=== PATIENT | male | born 1930 | race Caucasian/White ===

== ENCOUNTER 2018-06-13 13:48 | Emergency (ER) | payer MEDICARE ==
[~2018-06-13] VITALS: Ht 177.8 cm; Wt 70.8 kg
--- NOTE | ~2018-06-13 | EKG ---
[place], [place] ELECTROCARDIOGRAM REPORT NAME: DENVER HUDDLESTON UNIT #: [id number] ROOM: DOCTOR: EPIPHANY DRAFT REPORT BIRTHDATE: [birth year] [facility] Test Date: 2018-06-13 Test Time: 14:35:45 Pat Name: DENVER HUDDLESTON Department: Room: Gender: Brass Polisher: DYLON : 1930 Requested By: BETHANY JUNIOR PA-C Order Number: [id number] Reading MD: Jody Solorio Measurements Intervals [place] Rate: 61 P: 51 VT: 148 QRS: -44 QRSD: 148 T: 67 QT: 471 QTc: 475 Interpretive Statements Sinus rhythm Probable left atrial enlargement Left bundle branch block Electronically Signed On 06-19-2018 11:55:37 PST by Jody Solorio CM:EKGRPT:ELECTROCARDIOGRAM REPORT [id number] BETHANY JUNIOR PA-C EPIPHANY DRAFT REPORT BETHANY JUNIOR PA-C
[~2018-06-13 13:48] MED LIST: 'CLONIDINE0.1 MG PO; Coumadin5 MG PO; METRONIDAZOLE 1%
[2018-06-13 14:49] LABS: BASO % 0.3 % (0.0-1.0); EOS # 0.1 10*3/uL (0.0-0.4); EOS % 1.5 % (1.0-4.0); LYMPH # 1.1 10*3/uL (1.3-4.4); LYMPH % 15.4 % (27.0-41.0); MEAN CELL VOLUME 95.2 fl (80.0-94.0); MEAN CORPUSCULAR HGB 31.7 pg (27.0-31.0); MEAN CORPUSCULAR HGB CONC 33.3 g/dl (33.0-37.0); MEAN PLATELET VOLUME 8.2 fl (9.6-12.3); MONO # 0.7 10*3/uL (0.1-1.0); MONO % 8.8 % (3.0-9.0); NEUT # 5.5 10*3/uL (2.3-7.9); NEUT % 73.7 % (47.0-73.0); PLATELET COUNT AUTOMATED 211 10*3/uL (130-400); RED BLOOD COUNT 4.41 10*6/uL (4.50-5.90); WHITE BLOOD COUNT 7.4 10*3/uL (4.8-10.8)
[2018-06-13 14:56] LABS: INTERNATIONAL NORM RATIO 0.9 (2.0-3.5)
[2018-06-13 15:06] LABS: ALBUMIN 3.6 gm/dl (3.1-4.5); ALKALINE PHOSPHATASE 75 U/L (45-117); BUN 29 mg/dl (7-24); CHLORIDE 107 mmol/L (98-107); CREATININE 1.76 mg/dL (0.70-1.30); POTASSIUM 4.4 mmol/L (3.5-5.1); SGOT/AST 22 IU/L (3-35); SGPT/ALT 20 U/L (12-78); SODIUM 141 mmol/L (136-145); TOTAL PROTEIN 7.5 gm/dL (6.4-8.2)
[2018-06-13 15:08] LABS: TROPONIN I < 0.015 ng/ml (<0.045)
[2018-06-13] MEDS ORDERED: MECLIZINE HCL25 M2 PO (17:36)
[2018-11-13] MEDS ORDERED: ASPIRIN ADULT L81 M1 PO (08:27)
[2018-11-13] MEDS ORDERED: BUSPAR5 MG PO (08:27)
[2018-11-13] MEDS ORDERED: NORVASC5 MG PO (08:28)
[2018-11-17] MEDS ORDERED: NORCO 5-325 TA1 EACH PO (15:13)
[2018-11-17] MEDS ORDERED: COLACE100 MG PO (15:17)
== END 2018-06-13 17:45 | disposition home or self-care (01) ==
LOC: ED 13:48
PROVIDERS: Physician Assistant
DX: I10 Essential (primary) hypertension (principal); R42 Dizziness and giddiness; Z88.2 Allergy status to sulfonamides; Z88.1 Allergy status to other antibiotic agents; Z88.8 Allergy status to other drugs, medicaments and biological substances; Z79.01 Long term (current) use of anticoagulants; Z79.899 Other long term (current) drug therapy; Z90.49 Acquired absence of other specified parts of digestive tract; Z87.891 Personal history of nicotine dependence

== ENCOUNTER 2018-09-22 18:33 | Emergency (ER) | payer MEDICARE ==
[~2018-09-22] VITALS: Ht 177.8 cm; Wt 68.0 kg
[~2018-09-22 18:33] MED LIST changes: +MECLIZINE HCL25 M2 PO
[2018-09-22 19:29] LABS: BASO % 0.3 % (0.0-1.0); EOS # 0.1 10*3/uL (0.0-0.4); EOS % 0.8 % (1.0-4.0); HEMATOCRIT 41.9 % (42.0-52.0); HEMOGLOBIN 13.9 g/dl (14.0-18.0); LYMPH # 1.4 10*3/uL (1.3-4.4); LYMPH % 15.3 % (27.0-41.0); MEAN CELL VOLUME 95.2 fl (80.0-94.0); MEAN CORPUSCULAR HGB 31.6 pg (27.0-31.0); MEAN CORPUSCULAR HGB CONC 33.2 g/dl (33.0-37.0); MEAN PLATELET VOLUME 8.2 fl (9.6-12.3); MONO # 0.9 10*3/uL (0.1-1.0); MONO % 10.4 % (3.0-9.0); NEUT # 6.5 10*3/uL (2.3-7.9); NEUT % 72.7 % (47.0-73.0); PLATELET COUNT AUTOMATED 221 10*3/uL (130-400); RED CELL DISTRI WIDTH 13.4 % (0-14.5); WHITE BLOOD COUNT 8.9 10*3/uL (4.8-10.8)
[2018-09-22 19:30] LABS: BILIRUBIN NEGATIVE (NEGATIVE); BLOOD TRACE-LYSED (NEGATIVE); CLARITY CLEAR (CLEAR); COLOR YELLOW (YELLOW); GLUCOSE NEGATIVE (NEGATIVE); KETONE NEGATIVE (NEGATIVE); LEUKO ESTERASE NEGATIVE (NEGATIVE); NITRITE NEGATIVE (NEGATIVE); PH 6.5 (5.0-9.0); SPECIFIC GRAVITY <= 1.005 (1.005-1.030); UROBILINOGEN 0.2 E.U./dl (0.2-1.0)
[2018-09-22 19:40] LABS: BACTERIA TRACE; EPITHELIAL CELLS 0-2
[2018-09-22 19:40] LABS: ACT PARTIAL THROMBO TIME 24.3 SECONDS (20.0-32.1); INTERNATIONAL NORM RATIO 0.9 (2.0-3.5)
[2018-09-22 19:45] LABS: CREATININE 1.94 mg/dL (0.70-1.30); POTASSIUM 3.8 mmol/L (3.5-5.1); THYROXINE (T4) TOTAL 9.2 ug/dl (4.5-12.1); TOTAL PROTEIN 7.6 gm/dL (6.4-8.2)
[2018-09-22 19:53] LABS: THYROID STIM HORMONE (HS) 4.14 uIU/ml (0.358-4.75)
[2018-11-13] MEDS ORDERED: ASPIRIN ADULT L81 M1 PO (08:27)
[2018-11-13] MEDS ORDERED: BUSPAR5 MG PO (08:27)
[2018-11-13] MEDS ORDERED: NORVASC5 MG PO (08:28)
[2018-11-17] MEDS ORDERED: NORCO 5-325 TA1 EACH PO (15:13)
[2018-11-17] MEDS ORDERED: COLACE100 MG PO (15:17)
== END 2018-09-22 21:22 | disposition home or self-care (01) ==
LOC: ED 18:33
PROVIDERS: Nurse Practitioner Family
DX: F91.9 Conduct disorder, unspecified (principal); R51 Headache; I12.9 Hypertensive chronic kidney disease with stage 1 through stage 4 chronic kidney disease, or unspecified chronic kidney disease; N18.3 Chronic kidney disease, stage 3 (moderate); E78.1 Pure hyperglyceridemia; Z88.2 Allergy status to sulfonamides; Z88.1 Allergy status to other antibiotic agents; Z88.8 Allergy status to other drugs, medicaments and biological substances; Z79.01 Long term (current) use of anticoagulants; Z79.899 Other long term (current) drug therapy; Z86.73 Personal history of transient ischemic attack (TIA), and cerebral infarction without residual deficits; Z90.49 Acquired absence of other specified parts of digestive tract; Z87.891 Personal history of nicotine dependence

== ENCOUNTER → 2018-11-17 | Day surgery (SDC) | payer MEDICARE ==
[~2018-11-17] VITALS: Ht 175.2 cm; Wt 65.8 kg
[2018-11-17] VITALS (7 sets, daily range): BP systolic 115–130; BP diastolic 55–97
[~2018-11-17] MED LIST changes: +ASPIRIN ADULT L81 M1 PO; +BUSPAR5 MG PO; +COLACE100 MG PO; +NORCO 5-325 TA1 EACH PO; +NORVASC5 MG PO
== END | disposition home or self-care (01) ==
LOC: SDC 11-13 08:00
DX: K40.91 Unilateral inguinal hernia, without obstruction or gangrene, recurrent (principal); I10 Essential (primary) hypertension; F32.9 Major depressive disorder, single episode, unspecified; F41.9 Anxiety disorder, unspecified; Z98.890 Other specified postprocedural states; Z79.84 Long term (current) use of oral hypoglycemic drugs; Z79.899 Other long term (current) drug therapy; Z88.0 Allergy status to penicillin; Z88.2 Allergy status to sulfonamides; Z88.8 Allergy status to other drugs, medicaments and biological substances; Z86.718 Personal history of other venous thrombosis and embolism; Z80.42 Family history of malignant neoplasm of prostate; Z80.8 Family history of malignant neoplasm of other organs or systems; Z85.828 Personal history of other malignant neoplasm of skin; Z90.49 Acquired absence of other specified parts of digestive tract

== ENCOUNTER → 2018-12-18 | Outpatient (CLI) | payer MEDICARE | END | disposition home or self-care (01) | LOC: US 14:11 | DX: R10.31 Right lower quadrant pain (principal) ==

== ENCOUNTER → 2019-04-05 | Outpatient (CLI) | payer MEDICARE ==
[2019-04-05 09:03] LABS: BILIRUBIN NEGATIVE (NEGATIVE); BLOOD TRACE-INTACT (NEGATIVE); CLARITY CLEAR (CLEAR); COLOR YELLOW (YELLOW); GLUCOSE NEGATIVE (NEGATIVE); KETONE NEGATIVE (NEGATIVE); LEUKO ESTERASE NEGATIVE (NEGATIVE); NITRITE NEGATIVE (NEGATIVE); SPECIFIC GRAVITY 1.025 (1.005-1.030); UROBILINOGEN 0.2 E.U./dl (0.2-1.0)
[2019-04-05 09:06] LABS: BASO % 0.5 % (0.0-1.0); EOS # 0.2 10*3/uL (0.0-0.4); EOS % 2.8 % (1.0-4.0); HEMATOCRIT 41.2 % (42.0-52.0); HEMOGLOBIN 13.6 g/dl (14.0-18.0); LYMPH # 1.5 10*3/uL (1.3-4.4); LYMPH % 19.3 % (27.0-41.0); MEAN CELL VOLUME 94.5 fl (80.0-94.0); MEAN CORPUSCULAR HGB 31.2 pg (27.0-31.0); MEAN PLATELET VOLUME 8.9 fl (9.6-12.3); MONO # 0.8 10*3/uL (0.1-1.0); MONO % 9.5 % (3.0-9.0); NEUT # 5.4 10*3/uL (2.3-7.9); NEUT % 67.6 % (47.0-73.0); PLATELET COUNT AUTOMATED 255 10*3/uL (130-400); RED BLOOD COUNT 4.36 10*6/uL (4.50-5.90); RED CELL DISTRI WIDTH 13.3 % (0-14.5)
[2019-04-05 09:15] LABS: POTASSIUM 4.2 mmol/L (3.5-5.1)
[2019-04-05 09:19] LABS: ALBUMIN 3.7 gm/dl (3.1-4.5); CREATININE 1.8 mg/dL (0.70-1.30); PHOSPHOROUS 2.9 mg/dL (2.5-4.9)
[2019-04-05 09:32] LABS: FERRITIN 51.6 ng/mL (22.0-322.0); VITAMIN D, 25-HYDROXY 28.6 ng/mL (30-100)
[2019-04-05 09:33] LABS: PTH INTACT 60.4 pg/mL (18.5-88.0)
[2019-04-05 09:41] LABS: BACTERIA 2+; EPITHELIAL CELLS 0-2; MUCOUS 1+; WBC 0-2 wbc/hpf (0-5)
== END | disposition home or self-care (01) ==
LOC: LAB 07:55
PROVIDERS: Internal Medicine Nephrology
DX: N25.81 Secondary hyperparathyroidism of renal origin (principal); N18.3 Chronic kidney disease, stage 3 (moderate); D63.1 Anemia in chronic kidney disease

== ENCOUNTER → 2019-04-09 | Outpatient (CLI) | payer MEDICARE | END | disposition home or self-care (01) | LOC: US 13:11 | DX: M79.89 Other specified soft tissue disorders (principal); M79.605 Pain in left leg; Z86.718 Personal history of other venous thrombosis and embolism ==

== ENCOUNTER 2019-05-14 11:25 | Emergency (ER) | payer MEDICARE ==
[~2019-05-14] VITALS: Ht 175.2 cm; Wt 72.6 kg
== END 2019-05-14 14:06 | disposition home or self-care (01) ==
LOC: ED 11:25
DX: S51.811A Laceration without foreign body of right forearm, initial encounter (principal); S51.011A Laceration without foreign body of right elbow, initial encounter; I12.9 Hypertensive chronic kidney disease with stage 1 through stage 4 chronic kidney disease, or unspecified chronic kidney disease; N18.3 Chronic kidney disease, stage 3 (moderate); Z79.82 Long term (current) use of aspirin; Z79.899 Other long term (current) drug therapy; Z88.1 Allergy status to other antibiotic agents; Z88.2 Allergy status to sulfonamides; Z88.8 Allergy status to other drugs, medicaments and biological substances; Z87.891 Personal history of nicotine dependence; Z86.73 Personal history of transient ischemic attack (TIA), and cerebral infarction without residual deficits; W01.0XXA Fall on same level from slipping, tripping and stumbling without subsequent striking against object, initial encounter; Y93.89 Activity, other specified; Y92.89 Other specified places as the place of occurrence of the external cause; Y99.8 Other external cause status

== ENCOUNTER → 2019-06-23 | Outpatient (CLI) | payer MEDICARE | END | disposition home or self-care (01) | LOC: RAD 09:42 | DX: M17.11 Unilateral primary osteoarthritis, right knee (principal) ==

== ENCOUNTER → 2019-07-07 | Outpatient (CLI) | payer MEDICARE ==
[2019-07-07 08:07] LABS: BASO % 0.6 % (0.0-1.0); EOS # 0.3 10*3/uL (0.0-0.4); EOS % 4.1 % (1.0-4.0); HEMATOCRIT 39.7 % (42.0-52.0); HEMOGLOBIN 13.2 g/dl (14.0-18.0); LYMPH # 1.5 10*3/uL (1.3-4.4); LYMPH % 21.1 % (27.0-41.0); MEAN CELL VOLUME 94.1 fl (80.0-94.0); MEAN CORPUSCULAR HGB 31.3 pg (27.0-31.0); MEAN CORPUSCULAR HGB CONC 33.2 g/dl (33.0-37.0); MEAN PLATELET VOLUME 8.4 fl (9.6-12.3); MONO # 0.8 10*3/uL (0.1-1.0); MONO % 10.8 % (3.0-9.0); NEUT # 4.5 10*3/uL (2.3-7.9); NEUT % 63.3 % (47.0-73.0); PLATELET COUNT AUTOMATED 238 10*3/uL (130-400); RED BLOOD COUNT 4.22 10*6/uL (4.50-5.90); RED CELL DISTRI WIDTH 13.2 % (0-14.5)
[2019-07-07 08:46] LABS: ALBUMIN 3.7 gm/dl (3.1-4.5); CREATININE 1.84 mg/dL (0.70-1.30); TOTAL PROTEIN 7.3 gm/dL (6.4-8.2)
== END | disposition home or self-care (01) ==
LOC: LAB 07:38
PROVIDERS: Family Medicine
DX: I10 Essential (primary) hypertension (principal); E55.9 Vitamin D deficiency, unspecified; Z79.899 Other long term (current) drug therapy

== ENCOUNTER 2020-01-03 07:56 | Observation (INO) | payer MEDICARE ==
[~2020-01-03] VITALS: Ht 175.3 cm; Wt 62.3 kg
[2020-01-03 08:00] VITALS: BP 140/66
[2020-01-03] MEDS ORDERED: LISINOPRIL5 MG PO (08:12)
[2020-01-03 09:07] LABS: BASO % 0.3 % (0.0-1.0); EOS # 0.1 10*3/uL (0.0-0.4); EOS % 0.9 % (1.0-4.0); HEMATOCRIT 42.9 % (42.0-52.0); LYMPH # 1.4 10*3/uL (1.3-4.4); MEAN CELL VOLUME 92.9 fl (80.0-94.0); MEAN CORPUSCULAR HGB 30.1 pg (27.0-31.0); MEAN CORPUSCULAR HGB CONC 32.4 g/dl (33.0-37.0); MEAN PLATELET VOLUME 8.4 fl (9.6-12.3); MONO % 9.9 % (3.0-9.0); NEUT # 7.2 10*3/uL (2.3-7.9); NEUT % 74.6 % (47.0-73.0); PLATELET COUNT AUTOMATED 265 10*3/uL (130-400); RED BLOOD COUNT 4.62 10*6/uL (4.50-5.90); WHITE BLOOD COUNT 9.6 10*3/uL (4.8-10.8)
[2020-01-03 09:18] LABS: ALBUMIN 4.1 gm/dl (3.1-4.5); CREATININE 2.06 mg/dL (0.70-1.30); POTASSIUM 3.8 mmol/L (3.5-5.1); TOTAL PROTEIN 8.2 gm/dL (6.4-8.2)
[2020-01-03 09:22] LABS: BILIRUBIN NEGATIVE; BLOOD NEGATIVE (NEGATIVE); CLARITY CLEAR (CLEAR); COLOR YELLOW (YELLOW); EPITHELIAL CELLS 0-2; GLUCOSE NEGATIVE; KETONE NEGATIVE; LEUKO ESTERASE NEGATIVE (NEGATIVE); NITRITE NEGATIVE (NEGATIVE); UROBILINOGEN 0.2 E.U./dl (0.0-1.0)
[2020-01-03 09:26] LABS: INTERNATIONAL NORM RATIO 0.9 (2.0-3.5)
--- NOTE | 2020-01-03 09:59 | NUR ---
PATIENT RESTING IN BED WITH EYES CLOSED. NO S/S OF DISTRESS NOTED, CALL LIGHT WITHIN REACH, BED IN LOW, SIDE RAILS UP X2.
[2020-01-03] MEDS ORDERED: BUSPAR5 MG PO (10:36)
[2020-01-03 10:40] VITALS: BP 121/50
[2020-01-03 10:45] VITALS: BP 128/54
--- NOTE | 2020-01-03 11:02 | NUR ---
BLADDER SCANNED FOR 190 AFTER URINATING IN ED. STATES HE HAS NO KNOWN HISTORY OF PROSTATE PROBLEMS.
[2020-01-03 12:00] VITALS: BP 114/57
[2020-01-03 16:00] VITALS: BP 103/47
[2020-01-03 20:00] VITALS: BP 110/52
--- NOTE | 2020-01-03 21:00 | NUR ---
PATIENT VOICED NO COMPLAINTS AT TIME, JUST SHOWED CONCERNS FOR . PATIENT STATED THAT AFTER HE ATE IT TOOK LONGER TO HAVE A BOWEL MOVEMENT COMPARED TO IMMEDIATELY HAVING TO GO. NO OVERT DISTRESS NOTED, BED IS LOCKED IN LOWEST POSITION, CALL LIGHT WITHIN REACH
[2020-01-04] VITALS: BP 110/50
--- NOTE | 2020-01-04 05:51 | NUR ---
PATIENT MEDICATED WITH ZOFRAN FOR C/O NAUSEA. WILL MONITOR
[2020-01-04 06:09] LABS: BASO % 0.3 % (0.0-1.0); EOS # 0.2 10*3/uL (0.0-0.4); EOS % 2.3 % (1.0-4.0); HEMATOCRIT 35.9 % (42.0-52.0); LYMPH # 1.5 10*3/uL (1.3-4.4); LYMPH % 16.6 % (27.0-41.0); MEAN CELL VOLUME 92.8 fl (80.0-94.0); MEAN CORPUSCULAR HGB 30.7 pg (27.0-31.0); MEAN CORPUSCULAR HGB CONC 33.1 g/dl (33.0-37.0); MEAN PLATELET VOLUME 8.4 fl (9.6-12.3); MONO % 10.9 % (3.0-9.0); NEUT # 6.2 10*3/uL (2.3-7.9); NEUT % 68.9 % (47.0-73.0); PLATELET COUNT AUTOMATED 210 10*3/uL (130-400); RED BLOOD COUNT 3.87 10*6/uL (4.50-5.90)
[2020-01-04 06:19] LABS: ALBUMIN 3.3 gm/dl (3.1-4.5); CREATININE 1.77 mg/dL (0.70-1.30); FREE T4 1.13 ng/dl (0.76-1.46); POTASSIUM 3.8 mmol/L (3.5-5.1); TOTAL PROTEIN 6.6 gm/dL (6.4-8.2)
[2020-01-04 06:23] LABS: THYROID STIM HORMONE (HS) 4.32 uIU/ml (0.358-4.75)
[2020-01-04 07:30] LABS: VITAMIN D, 25-HYDROXY 53.4 ng/mL (30-100)
[2020-01-04 08:00] VITALS: BP 104/44
--- NOTE | 2020-01-04 09:00 | NUR ---
Delivery And Installation Subcontractor in to talk to patient. Patient states lives at home with his . There are 12 steps in the home. Physician: Dr. Khadra Naidu Pharmacy: [facility] Home health services: none Patient's level of ADLs: INDEPENDENT Patient has working utilities: yes DME: none Follow-up physician's appointment after d/c: will be made by the hospitalist nurse director upon discharge Does patient want to access PORTAL?: no Discharge plan discussed with patient. He lives at home with his . He states he son arrived last night for [place] to stay with them until they are back on their feet. He is independent in his ADLs and ambulation. Discussed home health care services and he declines. CM will continue to follow for any discharge planning needs. When medically stable he will be discharged to home. He states his son will provide transportation on discharge. OPAL PRADO
[2020-01-04] MEDS ORDERED: FLAGYL500 MG PO (13:05)
[2020-01-04] MEDS ORDERED: CIPRO250 MG PO (13:05)
--- NOTE | 2020-01-04 13:55 | NUR ---
MSDIS Discharge instructions reviewed with patient/family. Patient receptive and verbalizes understanding. Follow-up care arranged. Written instructions given to patient/family. DELIA RICE
== END 2020-01-04 14:00 | disposition home or self-care (01) ==
LOC: ED 07:56 → 5E 10:20 → EDHOLD 10:20 → 5E 10:29
PROVIDERS: Emergency Medicine; Registered Nurse; ADMIT Internal Medicine; ATTEND Internal Medicine
DX: K52.9 Noninfective gastroenteritis and colitis, unspecified (principal); I12.9 Hypertensive chronic kidney disease with stage 1 through stage 4 chronic kidney disease, or unspecified chronic kidney disease; N18.3 Chronic kidney disease, stage 3 (moderate); E86.0 Dehydration; R73.9 Hyperglycemia, unspecified

== ENCOUNTER 2020-01-08 19:08 | Emergency (ER) | payer MEDICARE ==
[~2020-01-08] VITALS: Ht 175.2 cm; Wt 65.8 kg
[~2020-01-08 19:08] MED LIST changes: +CIPRO250 MG PO; +FLAGYL500 MG PO; +LISINOPRIL5 MG PO
[2020-01-08 20:03] LABS: BASO % 0.5 % (0.0-1.0); EOS # 0.1 10*3/uL (0.0-0.4); EOS % 1.6 % (1.0-4.0); HEMATOCRIT 36.7 % (42.0-52.0); LYMPH % 12.8 % (27.0-41.0); MEAN CELL VOLUME 91.1 fl (80.0-94.0); MEAN CORPUSCULAR HGB 29.8 pg (27.0-31.0); MEAN CORPUSCULAR HGB CONC 32.7 g/dl (33.0-37.0); MEAN PLATELET VOLUME 8.1 fl (9.6-12.3); MONO # 0.8 10*3/uL (0.1-1.0); MONO % 10.6 % (3.0-9.0); NEUT # 5.9 10*3/uL (2.3-7.9); NEUT % 74.2 % (47.0-73.0); PLATELET COUNT AUTOMATED 258 10*3/uL (130-400); RED BLOOD COUNT 4.03 10*6/uL (4.50-5.90); RED CELL DISTRI WIDTH 13.1 % (0-14.5); WHITE BLOOD COUNT 7.9 10*3/uL (4.8-10.8)
[2020-01-08 20:19] LABS: ALBUMIN 3.8 gm/dl (3.1-4.5); ALKALINE PHOSPHATASE 62 U/L (45-117); BUN 30 mg/dl (7-24); CHLORIDE 106 mmol/L (98-107); CREATININE 2.07 mg/dL (0.70-1.30); LIPASE 90 U/L (73-393); SGOT/AST 43 IU/L (3-35); SGPT/ALT 33 U/L (12-78); SODIUM 138 mmol/L (136-145); TOTAL PROTEIN 7.3 gm/dL (6.4-8.2)
[2020-01-08 20:21] LABS: ACT PARTIAL THROMBO TIME 27.1 SECONDS (20.0-32.1); TROPONIN I < 0.015 ng/ml (<0.045)
[2020-01-08 21:00] LABS: CLARITY CLEAR (CLEAR); COLOR YELLOW (YELLOW)
[2020-01-08 21:01] LABS: BACTERIA TRACE; BILIRUBIN NEGATIVE; BLOOD NEGATIVE (NEGATIVE); GLUCOSE NEGATIVE; KETONE NEGATIVE; LEUKO ESTERASE TRACE (NEGATIVE); NITRITE NEGATIVE (NEGATIVE); WBC 0-2 wbc/hpf (0-5)
[2020-01-09] MEDS ORDERED: MIRALAX POWDER17 G1 PO (00:11)
== END 2020-01-09 00:50 | disposition home or self-care (01) ==
LOC: ED 19:08
PROVIDERS: Emergency Medicine Emergency Medical Services
DX: K59.00 Constipation, unspecified (principal); E86.0 Dehydration; Z88.1 Allergy status to other antibiotic agents; Z88.2 Allergy status to sulfonamides; Z88.8 Allergy status to other drugs, medicaments and biological substances; Z79.899 Other long term (current) drug therapy; Z87.891 Personal history of nicotine dependence

== ENCOUNTER 2020-02-03 14:21 | Inpatient (IN) | payer MEDICARE ==
[~2020-02-03] VITALS: Ht 175.2 cm; Wt 63.5 kg
[~2020-02-03 14:21] MED LIST changes: +MIRALAX POWDER17 G1 PO
[2020-02-03 14:30] VITALS: BP 113/53
[2020-02-03 15:03] LABS: HEMATOCRIT 36.3 % (42.0-52.0); MEAN CELL VOLUME 92.1 fl (80.0-94.0); MEAN CORPUSCULAR HGB 30.5 pg (27.0-31.0); MEAN CORPUSCULAR HGB CONC 33.1 g/dl (33.0-37.0); MEAN PLATELET VOLUME 8.6 fl (9.6-12.3); PLATELET COUNT AUTOMATED 246 10*3/uL (130-400); RED BLOOD COUNT 3.94 10*6/uL (4.50-5.90); RED CELL DISTRI WIDTH 12.9 % (0-14.5); WHITE BLOOD COUNT 25.9 10*3/uL (4.8-10.8)
[2020-02-03 15:13] LABS: ACT PARTIAL THROMBO TIME 29.3 SECONDS (20.0-32.1); INTERNATIONAL NORM RATIO 1.1 (2.0-3.5)
[2020-02-03 15:18] LABS: ALBUMIN 2.9 gm/dl (3.1-4.5); CREATININE 1.95 mg/dL (0.70-1.30); POTASSIUM 3.7 mmol/L (3.5-5.1); TOTAL PROTEIN 6.5 gm/dL (6.4-8.2); TROPONIN I 0.032 ng/ml (<0.045)
[2020-02-03 15:26] LABS: TOTAL CELLS COUNTED 100 #CELLS
[2020-02-03 15:27] LABS: BURR CELLS FEW
[2020-02-03 15:28] LABS: PLATELET SUFFICIENCY NORMAL (NORMAL)
--- NOTE | 2020-02-03 15:41 | NUR ---
PT PROMPTED FOR URINE SAMPLE. PT PROVIDED URINE CUP AND CALL LIGHT WITHIN REACH.
[2020-02-03 16:52] LABS: BILIRUBIN Negative (Negative); BLOOD Negative (Negative); CLARITY Cloudy (Clear); COLOR Dark Yellow (Yellow); GLUCOSE Negative (Negative); KETONE 1+ (Negative); LEUKO ESTERASE Negative (Negative); NITRITE Negative (Negative)
[2020-02-03 16:59] LABS: BACTERIA 4+; HYALINE CAST 0-2; RBC 0-2 rbc/hpf (0-2); WBC 0-2 wbc/hpf (0-5)
[2020-02-03 17:17] VITALS: BP 114/62
--- NOTE | 2020-02-03 17:49 | NUR ---
PT PREFERS TO STAY IN [facility]. PT PROMPTED TO WEAR GOWN.
--- NOTE | 2020-02-03 17:54 | NUR ---
PT DENIES WOUNDS.
[2020-02-03 18:10] VITALS: BP 116/52
--- NOTE | 2020-02-03 18:10 | NUR ---
A 89, admitted to 5E, under the services of FADI Villegas DO with a diagnosis of COLITIS, GENERAL WEAKNESS, SEPSIS. Chief complaint is ABDOMINAL PAIN AND DIARRHEA. Patient arrived via bed from ER. Monitor applied. Initial assessment completed. Vital signs taken and recorded. FADI VILLEGAS DO notified of admission to the unit. Orders received. See assessment for past medical history, medications and allergies. Patient and/or family oriented to unit. [facility] visitation policy reviewed. Clothing/patient valuable form completed. BETHANY GREGORY
[2020-02-03] MEDS ORDERED: PANTOPRAZOLE SO40 MG PO (18:29)
--- NOTE | 2020-02-03 19:27 | NUR ---
PT MED REC UPDATED PER PT AND MED CLAIM HISTORY. DR PATE NOTIFIED OF THIS.
[2020-02-03 20:00] VITALS: BP 128/46
--- NOTE | 2020-02-03 23:22 | NUR ---
PATIENT NAUSEOUS. MEDICATED WITH ZOFRAN AT THIS TIME. WILL CHECK EFFECTIVENESS.
[2020-02-04] VITALS: BP 136/57
--- NOTE | 2020-02-04 00:22 | NUR ---
PATIENT STATES DORIS IS HELPING.
--- NOTE | 2020-02-04 04:00 | NUR ---
PATIENT SLEEPING. NO SIGNS OF DISTRESS. RESPIRATIONS EASY, NON LABORED. IV FLUIDS INFUSING. BED IN LOWEST POSITION, CALL LIGHT WITHIN REACH, WILL CONTINUE TO MONITOR.
[2020-02-04 06:29] LABS: MEAN CELL VOLUME 94.6 fl (80.0-94.0); MEAN CORPUSCULAR HGB 30.1 pg (27.0-31.0); MEAN CORPUSCULAR HGB CONC 31.8 g/dl (33.0-37.0); MEAN PLATELET VOLUME 8.9 fl (9.6-12.3); PLATELET COUNT AUTOMATED 249 10*3/uL (130-400); RED BLOOD COUNT 3.49 10*6/uL (4.50-5.90); RED CELL DISTRI WIDTH 13.2 % (0-14.5); WHITE BLOOD COUNT 26.2 10*3/uL (4.8-10.8)
[2020-02-04 07:00] LABS: ALBUMIN 2.4 gm/dl (3.1-4.5); CREATININE 1.77 mg/dL (0.70-1.30); POTASSIUM 3.7 mmol/L (3.5-5.1)
[2020-02-04 07:01] LABS: TOTAL PROTEIN 5.7 gm/dL (6.4-8.2)
[2020-02-04 07:46] LABS: TOTAL CELLS COUNTED 100 #CELLS
[2020-02-04 07:47] LABS: BURR CELLS FEW; PLATELET SUFFICIENCY NORMAL (NORMAL)
[2020-02-04 08:00] VITALS: BP 102/58
--- NOTE | 2020-02-04 08:37 | NUR ---
PT GIVEN ZOFRAN AT THIS TIME FOR C/O NAUSEA. WILL MONITOR FOR EFFECTIVENESS. CALL LIGHT IN REACH.
--- NOTE | 2020-02-04 08:44 | NUR ---
Shift chart check completed.
--- NOTE | 2020-02-04 09:37 | NUR ---
ZOFRAN EFFECTIVE PER PT.
--- NOTE | 2020-02-04 10:57 | NUR ---
FLIGHT COMMUNICATIONS OFFICER FAXED REFERRAL TO [facility] FOR REVIEW.
--- NOTE | 2020-02-04 11:11 | NUR ---
FACE TO FACE FORM FAXED TO [facility].
--- NOTE | 2020-02-04 11:51 | NUR ---
Deputy County Counsel in to talk to patient. Patient states lives at HOME with . There are 10 steps in the home. Physician: RICHY Pharmacy: [facility] Home health services: NONE AT THIS TIME FOR HIMSELF BUT HAS THEM AND HE WOULD LIKE SAME COMPANY BUT DOES NOT KNOW WHICH ONE IT IS. Patient's level of ADLs: INDEPENDENT Patient has working utilities: YES DME: NONE Follow-up physician's appointment after d/c: WILL BE MADE BY HOSPITALIST NURSE DIRECTOR ON DISCHARGE Does patient want to access PORTAL?: NO Discharge plan PT LIVES AT HOME WITH HIS AND IS INDEPENDENT. PT STATES HIS RECENTLY HAD A HEART CATH AND HAS HOME HEALTH BUT DID NOT KNOW WHAT COMPANY. STATES HE WOULD LIKE THE SAME ONE. PER NOTES PT HAS [facility]. REFERRAL HAS BEEN SENT TO [facility] FOR PT ALSO. PT STATES HIS SON IS IN FROM [place] AND WILL BE STAYING FOR A WEEK OR MORE WITH THEM. WILL CONTINUE TO FOLLOW. PT STATES HE WILL HAVE A RIDE HOME.. GERARDO HAMPTON
[2020-02-04 12:00] VITALS: BP 113/52
--- NOTE | 2020-02-04 13:43 | NUR ---
LAB CALLS THIS NURSE WITH CRITICAL FINDING OF A POSITIVE C DIFF FOR THIS PATIENT. DR DUNBAR NOTIFIED OF THIS.
--- NOTE | 2020-02-04 14:23 | NUR ---
CONSULT CALLED TO DR TAN OFFICE.
[2020-02-04 16:35] VITALS: BP 123/47
[2020-02-04 20:00] VITALS: BP 128/49
--- NOTE | 2020-02-04 21:19 | NUR ---
PATIENT DRY HEAVING, REQUESTING SOMETHING FOR IT. MEDICATED WITH PHENERGAN AT THIS TIME. WILL CHECK EFFECTIVENESS.
--- NOTE | 2020-02-04 22:19 | NUR ---
PATIENT STATES HE IS FEELING BETTER. PHENERGAN EFFECTIVE.
[2020-02-05] VITALS: BP 118/54
--- NOTE | 2020-02-05 04:00 | NUR ---
PATIENT SLEEPING, NO SIGNS OF DISTRESS. RESPIRATIONS EASY,NON LABORED. BED IN LOWEST POSITION,CALL LIGHT WITHIN REACH. WILL CONTINUE TO MONITOR.
[2020-02-05 06:17] LABS: HEMATOCRIT 32.4 % (42.0-52.0); MEAN CELL VOLUME 93.4 fl (80.0-94.0); MEAN CORPUSCULAR HGB CONC 32.1 g/dl (33.0-37.0); MEAN PLATELET VOLUME 8.8 fl (9.6-12.3); PLATELET COUNT AUTOMATED 241 10*3/uL (130-400); RED BLOOD COUNT 3.47 10*6/uL (4.50-5.90); RED CELL DISTRI WIDTH 13.3 % (0-14.5); WHITE BLOOD COUNT 20.7 10*3/uL (4.8-10.8)
[2020-02-05 06:34] LABS: ALBUMIN 2.3 gm/dl (3.1-4.5); CREATININE 1.85 mg/dL (0.70-1.30); POTASSIUM 3.6 mmol/L (3.5-5.1); TOTAL PROTEIN 5.6 gm/dL (6.4-8.2)
[2020-02-05 07:03] LABS: BURR CELLS MODERATE; PLATELET SUFFICIENCY NORMAL (NORMAL); TOTAL CELLS COUNTED 100 #CELLS
--- NOTE | 2020-02-05 07:30 | NUR ---
TOOK OVER CARE OF PT AT THIS TIME. PT RESTING IN BED. RESPIRATIONS EASY AND UNLABORED ON ROOM AIR. NO S/S OF DISTRESS. NO COMPLAINTS VOICED BY PT. CALL LIGHT IN REACH.
[2020-02-05 08:00] VITALS: BP 118/53
[2020-02-05 12:00] VITALS: BP 120/50
[2020-02-05 16:00] VITALS: BP 111/47
[2020-02-05 20:00] VITALS: BP 112/49
[2020-02-06] VITALS: BP 126/52
[2020-02-06 06:17] LABS: HEMATOCRIT 33.3 % (42.0-52.0); MEAN CELL VOLUME 93.5 fl (80.0-94.0); MEAN CORPUSCULAR HGB 30.3 pg (27.0-31.0); MEAN CORPUSCULAR HGB CONC 32.4 g/dl (33.0-37.0); MEAN PLATELET VOLUME 8.8 fl (9.6-12.3); PLATELET COUNT AUTOMATED 265 10*3/uL (130-400); RED BLOOD COUNT 3.56 10*6/uL (4.50-5.90); RED CELL DISTRI WIDTH 13.2 % (0-14.5); WHITE BLOOD COUNT 16.3 10*3/uL (4.8-10.8)
[2020-02-06 06:30] LABS: POTASSIUM 3.2 mmol/L (3.5-5.1)
[2020-02-06 06:34] LABS: CREATININE 1.72 mg/dL (0.70-1.30)
[2020-02-06 07:22] LABS: BURR CELLS MODERATE; PLATELET SUFFICIENCY NORMAL (NORMAL); TOTAL CELLS COUNTED 100 #CELLS
[2020-02-06 08:00] VITALS: BP 117/47
[2020-02-06 12:00] VITALS: BP 112/46
[2020-02-06 16:00] VITALS: BP 127/53
--- NOTE | 2020-02-06 16:35 | NUR ---
TYLENOL GIVEN FOR ACHING BACK PAIN RATED 5/10. CALL LIGHT IN REACH. K-PAD ALSO APPLIED O BACK AT THIS TIME. WILL MONITOR.
--- NOTE | 2020-02-06 17:26 | NUR ---
PER PT, TYLENOL AND K-PAD HAVE HELPED RELIEVE EARLIER BACK PAIN COMPLAINTS. CALL LIGHT IN REACH.
[2020-02-06 20:00] VITALS: BP 116/62
--- NOTE | 2020-02-06 20:30 | NUR ---
IN TO ASSESS PATIENT. PATIENT PLEASANT AND COOPERATIVE WITH ASSESSMENT. STATES HE WOULD LIKE TO TAKE HIS ANTIBIOTIC AND HIS "DRY HEAVE MEDICATION", AT THE SAME TIME TONIGHT SO MAYBE HE WILL SLEEP THROUGH THE NIGHT. PATIENT STATES HIS BOWEL MOVEMEMNTS ARE BECOMIGN LESS, BUT WHEN HE GOES IT'S LIKE A CORK IS REMOVED AND IT JUST COMES OUT. BOWELS HYPERACTIVE X4 QUADS. STATES HE HAS TENDERNESS AND NAUSEA AT TIMES. CALL LIGHT WITHIN REACH, WILL MONITOR
--- NOTE | 2020-02-06 23:00 | NUR ---
PATIENT SLEEPING, AWAKENS EASILY FOR NIGHTTIME MEDS. NO COMPLAINTS AT THIS TIME. CALL LIGHT WITHIN REACH, WILL MONITOR
[2020-02-07] VITALS: BP 139/63
--- NOTE | 2020-02-07 01:21 | NUR ---
24 HR chart check completed.
--- NOTE | 2020-02-07 02:53 | NUR ---
PATIENT SLEEPING, NO DISTRESS NOTED. BREATHING IS EASY AND REGULAR. CALL LIGHT WITHIN REACH, WILL MONITOR
[2020-02-07 06:24] LABS: BASO % 0.3 % (0.0-1.0); EOS # 0.2 10*3/uL (0.0-0.4); EOS % 2.2 % (1.0-4.0); HEMATOCRIT 33.4 % (42.0-52.0); LYMPH # 1.2 10*3/uL (1.3-4.4); LYMPH % 11.4 % (27.0-41.0); MEAN CELL VOLUME 93.3 fl (80.0-94.0); MEAN CORPUSCULAR HGB 30.2 pg (27.0-31.0); MEAN CORPUSCULAR HGB CONC 32.3 g/dl (33.0-37.0); MEAN PLATELET VOLUME 8.7 fl (9.6-12.3); MONO # 1.4 10*3/uL (0.1-1.0); MONO % 13.8 % (3.0-9.0); NEUT # 7.4 10*3/uL (2.3-7.9); NEUT % 71.5 % (47.0-73.0); PLATELET COUNT AUTOMATED 275 10*3/uL (130-400); RED BLOOD COUNT 3.58 10*6/uL (4.50-5.90); RED CELL DISTRI WIDTH 13.5 % (0-14.5); WHITE BLOOD COUNT 10.4 10*3/uL (4.8-10.8)
[2020-02-07 06:43] LABS: CREATININE 1.53 mg/dL (0.70-1.30); POTASSIUM 3.3 mmol/L (3.5-5.1)
[2020-02-07 08:00] VITALS: BP 117/55
[2020-02-07 12:00] VITALS: BP 108/48
--- NOTE | 2020-02-07 12:37 | NUR ---
PT WILL BE GOING HOME WITH [facility] ON DISCHARGE WHEN MEDICALLY STABLE. WILL CONTINUE TO FOLLOW. STATES HE WILL HAVE A RIDE HOME.
[2020-02-07 14:00] VITALS: BP 129/51
--- NOTE | 2020-02-07 19:30 | NUR ---
IN TO ASSESS PATIENT. PATIENT C/O NEEDING LINENS AND NO ONE HAS GOTTEN HIM ANY. EXPLAINED TO PATIENT THAT THE NEW SHIFT JUST CAME ON AND WERE UNAWARE HE NEEDED NEW TOWELS AND WASHCLOTHS. GAVE PATIENT NEW TOWELS AND WASHCLOTHS ALONG WITH A TOOTHBRUSH. PATIENT HAD NO OTHER COMPLAINTS. STATES HIS BOWEL MOVEMENTS ARE STARTING TO BECOME SOLID AND IS STILL SOMEWHAT TENDER ACROSS THE BOTTOM OF HIS STOMACH. PATIENT DENIES ANY OTHER NEEDS AT THIS TIME. WILL CONTINUE TO MONITOR
[2020-02-07 20:00] VITALS: BP 138/80; BP 141/97
--- NOTE | 2020-02-07 23:23 | NUR ---
24 HR chart check completed.
[2020-02-08] VITALS: BP 119/57
--- NOTE | 2020-02-08 01:02 | NUR ---
PATIENT SLEEPING, NO DISTRESS NOTED. BREATHING IS EASY AND REGULAR WITHOUT DISTRESS. CALL LIGHT WITHIN REACH, WILL MONITOR
[2020-02-08 06:58] LABS: CREATININE 1.51 mg/dL (0.70-1.30); POTASSIUM 3.2 mmol/L (3.5-5.1)
[2020-02-08 08:00] VITALS: BP 115/53
--- NOTE | 2020-02-08 11:53 | NUR ---
PT WILL DISCHARGE HOME WITH WHEN MEDICALLY STABLE WITH [facility] SERVICES. WILL CONTINUE TO FOLLOW.
[2020-02-08 12:00] VITALS: BP 118/52
[2020-02-08] MEDS ORDERED: LACTINEX 0.2 MG1 TAB PO (12:15)
[2020-02-08] MEDS ORDERED: VANCOMYCIN HCL250 MG PO (12:15)
[2020-02-08] MEDS ORDERED: ZOFRAN4 MG PO (12:15)
--- NOTE | 2020-02-08 12:49 | NUR ---
Discharge instructions reviewed with patient/family. Patient receptive and verbalizes understanding. Follow-up care arranged. Written instructions given to patient/family. JOSE HANNA
== END 2020-02-08 12:49 | disposition home or self-care (01) | DRG 871 ==
LOC: ED 14:21 → 5E 17:45
PROVIDERS: Emergency Medicine; Family Medicine; Student in an Organized Health Care Education/Training Program; ADMIT Internal Medicine; ATTEND Internal Medicine
DX: A41.9 Sepsis, unspecified organism (principal); N17.0 Acute kidney failure with tubular necrosis; E43 Unspecified severe protein-calorie malnutrition; E87.1 Hypo-osmolality and hyponatremia; A04.72 Enterocolitis due to Clostridium difficile, not specified as recurrent; N18.9 Chronic kidney disease, unspecified; K59.00 Constipation, unspecified; E86.0 Dehydration; R79.82 Elevated C-reactive protein (CRP); R79.89 Other specified abnormal findings of blood chemistry; R80.9 Proteinuria, unspecified; R82.4 Acetonuria; D72.810 Lymphocytopenia; I12.9 Hypertensive chronic kidney disease with stage 1 through stage 4 chronic kidney disease, or unspecified chronic kidney disease; D64.9 Anemia, unspecified; R65.20 Severe sepsis without septic shock; Z68.20 Body mass index [BMI] 20.0-20.9, adult; Z88.1 Allergy status to other antibiotic agents; Z88.2 Allergy status to sulfonamides; Z88.8 Allergy status to other drugs, medicaments and biological substances; Z90.49 Acquired absence of other specified parts of digestive tract; Z80.42 Family history of malignant neoplasm of prostate; Z86.718 Personal history of other venous thrombosis and embolism; Z87.11 Personal history of peptic ulcer disease; Z79.899 Other long term (current) drug therapy

== ENCOUNTER → 2020-06-30 | Outpatient (CLI) | payer MEDICARE ==
[~2020-06-30] MED LIST changes: +LACTINEX 0.2 MG1 TAB PO; +PANTOPRAZOLE SO40 MG PO; +VANCOMYCIN HCL250 MG PO; +ZOFRAN4 MG PO
== END | disposition home or self-care (01) ==
LOC: COVID19 09:14
PROVIDERS: ATTEND Ophthalmology
DX: Z01.818 Encounter for other preprocedural examination (principal); Z20.822 Contact with and (suspected) exposure to COVID-19

== ENCOUNTER → 2020-07-05 | Day surgery (SDC) | payer MEDICARE ==
[~2020-07-05] VITALS: Ht 175.2 cm; Wt 68.0 kg
[2020-07-05 08:07] VITALS: BP 119/71
[2020-07-05 09:20] VITALS: BP 133/62
[2020-07-05 09:35] VITALS: BP 127/65
[2020-07-05 09:48] VITALS: BP 124/63
== END ==
LOC: SDC 06-29 11:45
PROVIDERS: ATTEND Ophthalmology
DX: H25.812 Combined forms of age-related cataract, left eye (principal); I10 Essential (primary) hypertension; F41.9 Anxiety disorder, unspecified; Z88.0 Allergy status to penicillin; Z88.2 Allergy status to sulfonamides; Z88.8 Allergy status to other drugs, medicaments and biological substances; Z98.890 Other specified postprocedural states; Z79.899 Other long term (current) drug therapy

== ENCOUNTER → 2020-08-09 | Day surgery (SDC) | payer MEDICARE ==
[~2020-08-09] VITALS: Ht 175.2 cm; Wt 68.0 kg
[2020-08-09 08:30] VITALS: BP 131/68
[2020-08-09 09:54] VITALS: BP 132/63
[2020-08-09 10:09] VITALS: BP 132/60
[2020-08-09 10:24] VITALS: BP 137/63
== END ==
LOC: SDC 08-04 12:30
PROVIDERS: ATTEND Ophthalmology
DX: H25.811 Combined forms of age-related cataract, right eye (principal); I10 Essential (primary) hypertension; F41.9 Anxiety disorder, unspecified; Z88.0 Allergy status to penicillin; Z88.2 Allergy status to sulfonamides; Z88.8 Allergy status to other drugs, medicaments and biological substances; Z86.718 Personal history of other venous thrombosis and embolism; Z98.890 Other specified postprocedural states

== ENCOUNTER → 2021-01-23 | Outpatient (CLI) | payer MEDICARE ==
[2021-01-23 08:39] LABS: BASO # 0.1 10*3/uL (0.0-0.1); BASO % 0.6 % (0.0-1.0); EOS # 0.3 10*3/uL (0.0-0.4); EOS % 3.3 % (1.0-4.0); HEMATOCRIT 38.5 % (42.0-52.0); LYMPH % 22.2 % (27.0-41.0); MEAN CELL VOLUME 90.8 fl (80.0-94.0); MEAN CORPUSCULAR HGB 30.2 pg (27.0-31.0); MEAN CORPUSCULAR HGB CONC 33.2 g/dl (33.0-37.0); MEAN PLATELET VOLUME 8.4 fl (9.6-12.3); MONO # 0.9 10*3/uL (0.1-1.0); MONO % 9.7 % (3.0-9.0); NEUT # 5.7 10*3/uL (2.3-7.9); NEUT % 63.9 % (47.0-73.0); PLATELET COUNT AUTOMATED 263 10*3/uL (130-400); RED BLOOD COUNT 4.24 10*6/uL (4.50-5.90); RED CELL DISTRI WIDTH 13.3 % (0-14.5); WHITE BLOOD COUNT 8.9 10*3/uL (4.8-10.8)
[2021-01-23 08:55] LABS: ALBUMIN 4.1 gm/dl (3.1-4.5); CREATININE 1.88 mg/dL (0.70-1.30); POTASSIUM 4.1 mmol/L (3.5-5.1)
[2021-01-23 10:48] LABS: VITAMIN D, 25-HYDROXY 39.4 ng/mL (30-100)
[2021-01-23 10:49] LABS: FERRITIN 26.5 ng/mL (22.0-322.0); PTH INTACT 68.3 pg/mL (18.5-88.0)
[2021-01-23 13:15] LABS: BILIRUBIN Negative (Negative); BLOOD Negative (Negative); CLARITY Clear (Clear); COLOR Yellow (Yellow); GLUCOSE Negative (Negative); KETONE Negative (Negative); LEUKO ESTERASE Negative (Negative); NITRITE Negative (Negative); UROBILINOGEN 0.2 E.U./dl (0.0-1.0)
[2021-01-23 13:24] LABS: MUCOUS TRACE; RBC 0-2 rbc/hpf (0-2); WBC 0-2 wbc/hpf (0-5)
== END | disposition home or self-care (01) ==
LOC: LAB 08:11
PROVIDERS: ATTEND Internal Medicine Nephrology
DX: N18.30 Chronic kidney disease, stage 3 unspecified (principal); D63.1 Anemia in chronic kidney disease; N25.81 Secondary hyperparathyroidism of renal origin; Z79.899 Other long term (current) drug therapy